=== PATIENT | male | born 1960 | race Two or more races ===

== ENCOUNTER 2023-03-04 09:15 | Inpatient (IN) | payer BC, OTHER ==
[~2023-03-04] VITALS: Ht 182.9 cm; Wt 109.0 kg
[2023-03-04] MEDS ORDERED: SODIUM CHLORIDE 0.9% 1,000 ML IV ONE ×2 (09:45)
[2023-03-04 09:54] LABS: Basophils # (auto) 0.1 10 ^3/uL (0-0.2); Eosinophils # (auto) 0.3 10 ^3/uL (0-0.8); Eosinophils % (auto) 3.7 % (0.0-7.0); Hematocrit 47.8 % (41.0-53.0); Hemoglobin 16.5 g/dL (13.5-17.5); Lymphocytes # (auto) 3.9 10 ^3/uL (0.4-5.4); Lymphocytes % (auto) 42.7 % (10.0-50.0); Mean Corpuscular Hemoglobin 29.6 pg (28.0-32.0); Mean Corpuscular Hgb Conc. 34.5 g/dL (32.0-36.0); Mean Corpuscular Volume 85.6 fL (80.0-100.0); Monocytes # (auto) 0.6 10 ^3/uL (0-1.3); Monocytes % (auto) 6.3 % (0.0-12.0); Neutrophils # (auto) 4.3 10 ^3/uL (1.6-8.6); Neutrophils % (auto) 46.3 % (37.0-80.0); Nucleated Red Blood Cells % 0.3 %; Red Blood Cells 5.58 10^6/uL (4.5-5.90); Red Cell Distribution Width 14.3 % (11.8-14.3); White Blood Cell 9.2 10^3/uL (4.4-10.8)
[2023-03-04 10:16] LABS: Albumin 4.6 g/dL (3.4-5.0); BUN/Creatinine Ratio 15.5 (10.0-20.0); Calcium 9.1 mg/dL (8.5-10.1); Potassium 3.7 mmol/L (3.5-5.1)
[2023-03-04 10:19] LABS: Bilirubin, Total 0.3 mg/dL (0.2-1.0); Total Protein 7.5 g/dL (6.4-8.2)
[2023-03-04 10:21] LABS: Urine Bacteria NONE SEEN /hpf (None Seen); Urine Blood Negative /uL (Negative); Urine Mucus FEW (None Seen); Urine Specific Gravity 1.021 (1.001-1.035); Urine WBC <1 /hpf (0 - 3)
[2023-03-04] MEDS ORDERED: MORPHINE SULFATE 4 MG/ML SYR/VIAL IV ONE (11:00)
[2023-03-04] MEDS ORDERED: ONDANSETRON HCL 4 MG/2 ML VIAL IV ONE (11:00)
[2023-03-04] MEDS: METOPROLOL SUCCINATE XL 50 MG TAB PO SCH (12:00)
[2023-03-04] MEDS ORDERED: HYDROcodone-ACET 5/325MG TAB PO PRN (12:00)
[2023-03-04] MEDS ORDERED: ACETAMINOPHEN 325 MG TAB PO PRN (12:00)
[2023-03-04] MEDS ORDERED: METOCLOPRAMIDE HCL 5MG/ml INJ 2ml VIAL IV PRN (12:00)
[2023-03-04] MEDS ORDERED: LOSARTAN POTASSIUM 50 MG TAB PO ONE (12:00)
[2023-03-04] MEDS ORDERED: LACTATED RINGER'S 1,000 ML IV ONE (12:00)
[2023-03-04] MEDS ORDERED: DOCUSATE SOD 100 MG CAP PO PRN (12:00)
[2023-03-04] MEDS: SODIUM CHLOR 0.9% PF (SALINE LOCK) 10ML VIAL/SYR IV SCH (14:16)
[2023-03-04] MEDS: HYDROmorphone HCL 2 MG/ML VL/or syr IV PRN ×2 (15:06→20:50)
[2023-03-04] MEDS: GABAPENTIN 300 MG CAP PO SCH (23:31)
[2023-03-04] MEDS: CYCLOBENZAPRINE HCL 10 MG TAB PO SCH (23:31)
[2023-03-05] VITALS (7 sets, daily range): BP systolic 118–145; BP diastolic 61–87
[2023-03-05] MEDS: SODIUM CHLOR 0.9% PF (SALINE LOCK) 10ML VIAL/SYR IV SCH ×3 (01:00→15:20)
[2023-03-05] MEDS: HYDROmorphone HCL 2 MG/ML VL/or syr IV PRN ×5 (01:34→23:41)
[2023-03-05] MEDS: EMPAGLIFLOZIN 10 MG TAB PO SCH (07:00)
[2023-03-05] MEDS: METOPROLOL SUCCINATE XL 50 MG TAB PO SCH (09:40)
[2023-03-05] MEDS: ENOXAPARIN SOD 40 MG/0.4 ML SYRINGE SC SCH (09:40)
[2023-03-05] MEDS: CYCLOBENZAPRINE HCL 10 MG TAB PO SCH ×2 (09:41→21:43)
[2023-03-05] MEDS: PANTOPRAZOLE 40 MG TAB PO SCH (09:41)
[2023-03-05] MEDS: amLODIPine BESYLATE 5 MG TAB PO SCH (09:41)
[2023-03-05] MEDS: GABAPENTIN 300 MG CAP PO SCH ×2 (09:41→21:42)
[2023-03-05] MEDS: ATORVASTATIN 20 MG TAB PO SCH (09:41)
[2023-03-05] MEDS: levoFLOXacin 500MG 100 ML IV SCH (17:19)
[2023-03-05] MEDS ORDERED: DICYCLOMINE HCL 10 MG CAP PO ONE (19:00)
[2023-03-05] MEDS: DOCUSATE SOD 100 MG CAP PO SCH (21:42)
[2023-03-05] MEDS: metroNIDAZOLE 500MG/100ML 100 ML IV SCH (21:42)
[2023-03-06] MEDS: SODIUM CHLOR 0.9% PF (SALINE LOCK) 10ML VIAL/SYR IV SCH ×4 (00:42→22:00)
[2023-03-06] MEDS: HYDROmorphone HCL 2 MG/ML VL/or syr IV PRN ×5 (04:41→22:01)
[2023-03-06 05:00] VITALS: BP 141/81
[2023-03-06] MEDS: metroNIDAZOLE 500MG/100ML 100 ML IV SCH ×3 (06:36→21:59)
[2023-03-06] MEDS: EMPAGLIFLOZIN 10 MG TAB PO SCH (06:41)
[2023-03-06 08:00] VITALS: BP 142/73
[2023-03-06] MEDS: PANTOPRAZOLE 40 MG TAB PO SCH (10:23)
[2023-03-06] MEDS: CYCLOBENZAPRINE HCL 10 MG TAB PO SCH ×2 (10:23→21:59)
[2023-03-06] MEDS: DOCUSATE SOD 100 MG CAP PO SCH ×2 (10:23→21:59)
[2023-03-06] MEDS: GABAPENTIN 300 MG CAP PO SCH ×2 (10:23→21:59)
[2023-03-06] MEDS: ATORVASTATIN 20 MG TAB PO SCH (10:23)
[2023-03-06] MEDS: amLODIPine BESYLATE 5 MG TAB PO SCH (10:25)
[2023-03-06] MEDS: ENOXAPARIN SOD 40 MG/0.4 ML SYRINGE SC SCH (10:26)
[2023-03-06] MEDS: METOPROLOL SUCCINATE XL 50 MG TAB PO SCH (10:26)
[2023-03-06] MEDS: levoFLOXacin 500MG 100 ML IV SCH (10:53)
[2023-03-06 12:00] VITALS: BP 126/80
[2023-03-06 16:00] VITALS: BP 109/72
[2023-03-06 17:16] VITALS: BP 109/72
[2023-03-06 22:00] VITALS: BP 135/92
[2023-03-07] MEDS: HYDROmorphone HCL 2 MG/ML VL/or syr IV PRN ×5 (02:10→20:40)
[2023-03-07 05:00] VITALS: BP 139/87
[2023-03-07] MEDS: metroNIDAZOLE 500MG/100ML 100 ML IV SCH ×3 (06:01→22:51)
[2023-03-07] MEDS: SODIUM CHLOR 0.9% PF (SALINE LOCK) 10ML VIAL/SYR IV SCH ×3 (06:01→22:52)
[2023-03-07] MEDS: EMPAGLIFLOZIN 10 MG TAB PO SCH (06:50)
[2023-03-07 08:00] VITALS: BP 123/78
[2023-03-07] MEDS: CYCLOBENZAPRINE HCL 10 MG TAB PO SCH ×2 (08:40→22:51)
[2023-03-07] MEDS: ATORVASTATIN 20 MG TAB PO SCH (08:40)
[2023-03-07] MEDS: GABAPENTIN 300 MG CAP PO SCH ×2 (08:40→22:51)
[2023-03-07] MEDS: DOCUSATE SOD 100 MG CAP PO SCH ×2 (08:40→22:52)
[2023-03-07] MEDS: amLODIPine BESYLATE 5 MG TAB PO SCH (08:40)
[2023-03-07] MEDS: PANTOPRAZOLE 40 MG TAB PO SCH (08:40)
[2023-03-07] MEDS: ENOXAPARIN SOD 40 MG/0.4 ML SYRINGE SC SCH (08:41)
[2023-03-07 09:00] VITALS: BP 123/78
[2023-03-07] MEDS: levoFLOXacin 500MG 100 ML IV SCH (09:34)
[2023-03-07] MEDS: METOPROLOL SUCCINATE XL 50 MG TAB PO SCH (09:36)
[2023-03-07 13:00] VITALS: BP 135/84
[2023-03-07] MEDS: LACTULOSE 20Gm/30ML SOLN PO PRN (15:01)
[2023-03-07 17:00] VITALS: BP 134/84
[2023-03-07 22:00] VITALS: BP 144/79
[2023-03-08] MEDS: HYDROmorphone HCL 2 MG/ML VL/or syr IV PRN ×4 (00:36→20:11)
[2023-03-08 05:00] VITALS: BP 111/66
[2023-03-08] MEDS: metroNIDAZOLE 500MG/100ML 100 ML IV SCH ×3 (05:22→22:54)
[2023-03-08] MEDS: SODIUM CHLOR 0.9% PF (SALINE LOCK) 10ML VIAL/SYR IV SCH ×3 (06:15→22:53)
[2023-03-08] MEDS: EMPAGLIFLOZIN 10 MG TAB PO SCH (06:36)
[2023-03-08] MEDS: levoFLOXacin 500MG 100 ML IV SCH (08:51)
[2023-03-08] MEDS: GABAPENTIN 300 MG CAP PO SCH ×2 (08:52→22:53)
[2023-03-08] MEDS: CYCLOBENZAPRINE HCL 10 MG TAB PO SCH ×2 (08:52→22:53)
[2023-03-08] MEDS: ATORVASTATIN 20 MG TAB PO SCH (08:52)
[2023-03-08] MEDS: DOCUSATE SOD 100 MG CAP PO SCH ×2 (08:52→22:53)
[2023-03-08] MEDS: PANTOPRAZOLE 40 MG TAB PO SCH (08:52)
[2023-03-08] MEDS: amLODIPine BESYLATE 5 MG TAB PO SCH (08:54)
[2023-03-08] MEDS: METOPROLOL SUCCINATE XL 50 MG TAB PO SCH (08:55)
[2023-03-08 09:00] VITALS: BP 127/77
[2023-03-08] MEDS: ENOXAPARIN SOD 40 MG/0.4 ML SYRINGE SC SCH (12:19)
[2023-03-08 13:00] VITALS: BP 122/72
[2023-03-08] MEDS: LACTULOSE 20Gm/30ML SOLN PO PRN (14:03)
[2023-03-08 17:00] VITALS: BP 108/57
[2023-03-08 22:00] VITALS: BP 137/81
[2023-03-09] MEDS: HYDROmorphone HCL 2 MG/ML VL/or syr IV PRN ×3 (02:18→21:52)
[2023-03-09 05:00] VITALS: BP 122/72
[2023-03-09] MEDS: metroNIDAZOLE 500MG/100ML 100 ML IV SCH ×3 (06:34→21:20)
[2023-03-09] MEDS: SODIUM CHLOR 0.9% PF (SALINE LOCK) 10ML VIAL/SYR IV SCH ×3 (06:34→21:20)
[2023-03-09] MEDS: EMPAGLIFLOZIN 10 MG TAB PO SCH (07:00)
[2023-03-09 09:00] VITALS: BP 111/70
[2023-03-09] MEDS: amLODIPine BESYLATE 5 MG TAB PO SCH (10:00)
[2023-03-09] MEDS: METOPROLOL SUCCINATE XL 50 MG TAB PO SCH (10:00)
[2023-03-09] MEDS: CYCLOBENZAPRINE HCL 10 MG TAB PO SCH ×2 (10:56→21:20)
[2023-03-09] MEDS: DOCUSATE SOD 100 MG CAP PO SCH ×2 (10:57→21:20)
[2023-03-09] MEDS: ATORVASTATIN 20 MG TAB PO SCH (10:57)
[2023-03-09] MEDS: levoFLOXacin 500MG 100 ML IV SCH (10:57)
[2023-03-09] MEDS ORDERED: GABA-1250 PO (10:59)
[2023-03-09] MEDS ORDERED: DOCU-265 PO (10:59)
[2023-03-09] MEDS ORDERED: LEVO500T91 PO (10:59)
[2023-03-09] MEDS ORDERED: CYCL-611 PO (10:59)
[2023-03-09] MEDS ORDERED: ATOR20TA50 PO (10:59)
[2023-03-09] MEDS ORDERED: EMPA1TAB PO (10:59)
[2023-03-09] MEDS ORDERED: METR-344 PO (10:59)
[2023-03-09] MEDS: PANTOPRAZOLE 40 MG TAB PO SCH (11:01)
[2023-03-09] MEDS: ENOXAPARIN SOD 40 MG/0.4 ML SYRINGE SC SCH (11:02)
[2023-03-09] MEDS: GABAPENTIN 300 MG CAP PO SCH ×2 (11:11→21:20)
[2023-03-09 13:00] VITALS: BP 111/73
[2023-03-09 17:00] VITALS: BP 101/62
[2023-03-09 22:00] VITALS: BP 121/80
[2023-03-10 05:00] VITALS: BP 126/81
[2023-03-10] MEDS: metroNIDAZOLE 500MG/100ML 100 ML IV SCH ×2 (05:48→14:24)
[2023-03-10] MEDS: SODIUM CHLOR 0.9% PF (SALINE LOCK) 10ML VIAL/SYR IV SCH ×2 (05:48→14:24)
[2023-03-10] MEDS: HYDROmorphone HCL 2 MG/ML VL/or syr IV PRN (05:49)
[2023-03-10] MEDS: EMPAGLIFLOZIN 10 MG TAB PO SCH (06:41)
[2023-03-10 08:00] VITALS: BP 134/74
[2023-03-10] MEDS: GABAPENTIN 300 MG CAP PO SCH (10:27)
[2023-03-10] MEDS: DOCUSATE SOD 100 MG CAP PO SCH (10:27)
[2023-03-10] MEDS: ATORVASTATIN 20 MG TAB PO SCH (10:27)
[2023-03-10] MEDS: CYCLOBENZAPRINE HCL 10 MG TAB PO SCH (10:27)
[2023-03-10] MEDS: amLODIPine BESYLATE 5 MG TAB PO SCH (10:28)
[2023-03-10] MEDS: PANTOPRAZOLE 40 MG TAB PO SCH (10:28)
[2023-03-10] MEDS: levoFLOXacin 500MG 100 ML IV SCH (10:29)
[2023-03-10] MEDS: METOPROLOL SUCCINATE XL 50 MG TAB PO SCH (10:29)
[2023-03-10] MEDS: ENOXAPARIN SOD 40 MG/0.4 ML SYRINGE SC SCH (10:29)
[2023-03-10] MEDS ORDERED: KETOROLAC TROMETH 30 MG/ML 1ML VIAL IV PRN (10:45)
[2023-03-10] MEDS ORDERED: GASTROGRAFIN 120 ML SOL ONE (10:45)
[2023-03-10 12:00] VITALS: BP 143/93
[2023-03-10] MEDS: LACTULOSE 20Gm/30ML SOLN PO PRN (14:34)
[2023-03-10 16:00] VITALS: BP 131/78
[2023-03-10 17:38] VITALS: BP 140/77
== END 2023-03-10 20:01 | disposition home or self-care (01) | DRG 392 ==
LOC: EDBD 09:15 → ER 09:15 → OVERFLOW 12:05 → CENTRAL 22:00
PROVIDERS: ADMIT Internal Medicine; ATTEND Internal Medicine
DX: K57.30 Diverticulosis of large intestine without perforation or abscess without bleeding (principal); K59.00 Constipation, unspecified; I10 Essential (primary) hypertension; E11.9 Type 2 diabetes mellitus without complications; G89.29 Other chronic pain; Z86.010 Personal history of colon polyps
CPT/HCPCS: 36415; 71045; 74176; 74250; 80053; 81001; 83880; 84484; 85025; 93005; G0378; J1885; J1956; J2405; J3490

== ENCOUNTER 2025-07-17 01:11 | Emergency (ER) | payer BC, OTHER ==
[~2025-07-17] VITALS: Ht 185.4 cm; Wt 95.3 kg
[~2025-07-17 01:11] MED LIST: ATOR20TA50 PO; CYCL-611 PO; DOCU-265 PO; EMPA1TAB PO; GABA-1250 PO; LEVO500T91 PO; METR-344 PO
[2025-07-17] MEDS: HYDROcodone-ACET 10/325MG TAB PO ONE (01:45)
--- NOTE | 2025-07-17 01:48 | DVH ---
CHEST RADIOGRAPH Indication: chest pain Technique: Single frontal view of the chest was obtained COMPARISON: XY CHEST PORTABLE on DOS: 03/04/23 FINDINGS: Lines and Tubes: Thoracic epidural leads noted. Lungs: Clear Pleura: No pleural effusion or pneumothorax. Cardiomediastinal contours: Normal IMPRESSION: No abnormality demonstrated.
--- NOTE | 2025-07-17 01:52 | ED.PDOC ---
History of Present Illness HPI Comments 64-year-old male presents with chief complaint of nonradiating, substernal chest pain. Patient reports on having intermittent pain for the past 3 weeks following initial, unprovoked and atraumatic onset. No endorsed recent ailments, stressors, strenuous activities, travel, or substance use. He comments on history of similar chest pain episode in the past, with a company ED hospital facility visit, and being told on having a 50% heart blockage with no medical intervention performed then. Patient denies having any shortness of breath, nausea, vomiting, or further acute symptoms. Significant medical history of diabetes, hypercholesterolemia, and hypertension. Upon arrival to ED triage, patient was found hypertensive at 187/110. Chief Complaint: Chest Pain Time Seen by MD: 01:40 Primary Care Provider: LOKESH Nair Notes: Nurses Notes, Medications, Allergies Allergies: Coded Allergies: NO KNOWN ALLERGIES (Unverified , 03/04/23) Home Meds Active Scripts Metronidazole (Flagyl) 500 Mg Tab, 500 MG PO TID, #21 TAB Prov:TREMAYNE OLSEN MD 03/09/23 Levofloxacin Hemihydrate (LEVAQUIN 500 MG) 500 Mg Tab, 1 TAB PO DAILY, #7 TAB Prov:TREMAYNE OLSEN MD 03/09/23 Gabapentin (Gabapentin) 300 Mg Cap, 300 MG PO BID, #60 CAP Prov:TREMAYNE LOSEN MD 03/09/23 Empagliflozin (Jardiance) 10 Mg Tab, 25 MG PO QAM, #45 TAB Prov:TREMAYNE OLSEN MD 03/09/23 Docusate Sodium (Docusate Sodium) 100 Mg Cap, 100 MG PO BID, #60 CAP Prov:TREMAYNE OLSEN MD 03/09/23 Cyclobenzaprine HCl (Cyclobenzaprine Hydrochlo) 10 Mg Tab, 10 MG PO BID, #60 TAB Prov:TREMAYNE OLSEN MD 03/09/23 Atorvastatin Calcium (ATORVASTATIN CALCIUM) 20 Mg Tab, 20 MG PO DAILY, #30 TAB Prov:TREMAYNE OLSEN MD 03/09/23 Information Source: Patient Mode of Arrival: Ambulatory Severity: Moderate Timing: Weeks Duration: Intermittent Prehospital treatment: None Past Medical History PAST MEDICAL HISTORY: DM, High Lipids, HTN Surgical History: Denies all surgeries Family History Family History: Reviewed,noncontributory to illness Social History Smoker: Non-Smoker Alcohol: Denies ETOH Use Drugs: Marijuana Lives In: Home All Other Systems: Reviewed and Negative (Comprehensive review of systems are negative unless otherwise stated in HPI) Physical Exam General Appearance: Mild Distress, Normal HEENT: Normal ENT Inspection, Pharynx Normal, TMs Normal Neck: Full Range of Motion, Non-Tender, Normal, Normal Inspection Respiratory: Chest Non-Tender, Lungs Clear, No Accessory Muscle Use, No Respiratory Distress, Normal Breath Sounds Cardiovascular: No Edema, No JVD, No Murmur, No Gallop, Normal Peripheral Pulses, Regular Rate/Rhythm Breast Exam: Deferred Gastrointestinal: No Organomegaly, Non Tender, No Pulsatile Mass, Normal Bowel Sounds, Soft Genitalia: Deferred Pelvic: Deferred Rectal: Deferred Extremities: No calf tenderness, Normal capillary refill, Normal inspection, Normal range of motion, Non-tender, No pedal edema Musculoskeletal : Apperance: Normal Neurologic: Alert, assembler filters II-XII nml as Tested, No Motor Deficits, Normal Affect, Normal Mood, No Sensory Deficits Cerebellar Function: Normal Reflexes: Normal Skin: Dry, Normal Color, Warm Lymphatic: No Adenopathy Was a procedure done? Was a procedure done?: No EKG EKG : Pulse Rate (adult): 76 [place]: Normal Cardiac Rhythm: NSR Block: None Hypertrophy: None ST: Normal Differential Dx Considerations may include: SD, PE, ACS, URI, pneumonia, angina, anxiety, gastritis, among others X-Ray, Labs, Meds, VS Vital Signs Date Time Temp Pulse Resp B/P (MAP) Pulse Ox O2 Delivery O2 Flow Rate FiO2 07/17/25 01:52 76 07/17/25 01:31 76 07/17/25 01:15 97.6 83 20 187/110 98 97.6 Lab Test 07/17/25 02:51 07/17/25 01:45 07/17/25 01:26 Range/Units Troponin I High Sensitivity 5 4 </=54 ng/L White Blood Count 9.4 4.4-10.8 10^3/uL Red Blood Count 5.33 4.5-5.90 10^6/uL Hemoglobin 15.5 13.5-17.5 g/dL Hematocrit 45.9 41.0-53.0 % Mean Corpuscular Volume 86.1 80.0-100.0 fL Mean Corpuscular Hemoglobin 29.0 28.0-32.0 pg Mean Corpuscular Hemoglobin Concent 33.7 32.0-36.0 g/dL Red Cell Distribution Width 14.4 H 11.8-14.3 % Platelet Count 220 140-450 10^3/uL Mean Platelet Volume 8.6 6.9-10.8 fL Neutrophils (%) (Auto) 44.7 37.0-80.0 % Lymphocytes (%) (Auto) 42.6 10.0-50.0 % Monocytes (%) (Auto) 8.3 0.0-12.0 % Eosinophils (%) (Auto) 3.5 0.0-7.0 % Basophils (%) (Auto) 0.9 0.0-2.0 % Neutrophils # (Auto) 4.2 1.6-8.6 10 ^3/uL Lymphocytes # (Auto) 4.0 0.4-5.4 10 ^3/uL Monocytes # (Auto) 0.8 0-1.3 10 ^3/uL Eosinophils # (Auto) 0.3 0-0.8 10 ^3/uL Basophils # (Auto) 0.1 0-0.2 10 ^3/uL Nucleated Red Blood Cells 0.2 % Sodium Level 142 136-145 mmol/L Potassium Level 3.1 L 3.5-5.1 mmol/L Chloride Level 103 98-107 mmol/L Carbon Dioxide Level 30 20-31 mmol/L Anion Gap 9 5-15 Blood Urea Nitrogen 18 9-23 mg/dL Creatinine 1.18 0.700-1.30 mg/dL Glomerular Filtration Rate Calc 70 >90 mL/min BUN/Creatinine Ratio 15.3 10.0-20.0 Serum Glucose 97 74-106 mg/dL Calcium Level 10.1 8.7-10.4 mg/dL Total Bilirubin 0.5 0.2-1.0 mg/dL Aspartate Amino Transferase (AST) 25 13-40 U/L Alanine Aminotransferase (ALT) 18 7-40 U/L Alkaline Phosphatase 52 46-116 U/L B-Type Natriuretic Peptide Pending Total Protein 7.9 5.7-8.2 g/dL Albumin 4.8 3.2-4.8 g/dL POC Glucose 107 H 70-106 mg/dl Current Medications Medications (Trade) Dose Ordered Sig/Colt Route Start Time Stop Time Status Last Admin Ketorolac Tromethamine (Toradol Injection) 15 mg ONCE ONCE IM 07/17/25 03:30 07/17/25 03:31 DC 07/17/25 03:[address] [address] Ph: [phone] DIAGNOSTIC IMAGING Diagnostic Imaging Report : [id number] Signed PATIENT: CELINA PETE ACCT: [id number] UNIT: [id number] : 1960 LOC: ER ROOM / BED: / AGE / SEX: 64 / M ADM STATUS: REG ER SERVICE 0 ORDERING PHYSICIAN: GILBERTO KERR MD PROCEDURE(s): CXR1 - CHEST XRAY 1 VIEW REASON: chest pain ORDER NUMBER(s): [id number], ACCESSION NUMBER(s): [id number] CHEST RADIOGRAPH Indication: chest pain Technique: Single frontal view of the chest was obtained COMPARISON: XY CHEST PORTABLE on DOS: 03/04/23 FINDINGS: Lines and Tubes: Thoracic epidural leads noted. Lungs: Clear Pleura: No pleural effusion or pneumothorax. Cardiomediastinal contours: Normal IMPRESSION: No abnormality demonstrated. ATED BY: AZ MAHAJAN MD DICTATED DATE/TIME: 07/17/25145 SIGNED BY: AZ MAHAJAN MD SIGNED DATE/TIME: 07/17/25145 CC: Time of 1ST Reevaluation: 02:10 Reevaluation 1ST: Unchanged Patient Education/Counseling: Diagnosis, Treatment, Need For Follow Up Family Education/Counseling: No Family Present SEPSIS Sepsis Screen Date sepsis recognized/suspect: Jul 17, 2025 Time Sepsis recognized/suspect: 0117 Recent Procedure: No On Antibiotic Therapy: No Respiratory Rate >20: No Heart Rate >90: No Temp<36 C (96.8 F) or >38.3 C: No SBP <90 or MAP <65 mmHG: No New Acute Mental Status Change: No Is the patient on CPAP, BIPAP,: No Physician Orders B-Type Natriuretic Peptide (07/17/25 01:31) Electrocardigram (07/17/25 01:31) Troponin-I Hs (07/17/25 04:31) Chest Xray 1 View (07/17/25 01:31) Vital Signs Date Time Temp Pulse Resp B/P (MAP) Pulse Ox O2 Delivery O2 Flow Rate FiO2 07/17/25 01:52 76 07/17/25 01:31 76 07/17/25 01:15 97.6 83 20 187/110 98 97.6 Laboratory Tests Test 07/17/25 01:45 White Blood Count 9.4 10^3/uL (4.4-10.8) Medications Medications Dose Ordered Sig/Colt Route Start Time Stop Time Status Last Admin Dose Admin Ketorolac Tromethamine 15 mg ONCE ONCE IM 07/17/25 03:30 07/17/25 03:31 DC 07/17/25 03:44 Departure 1 Departure Time of Disposition: 03:54 Impression: Primary Impression: Acute coronary syndrome Disposition: ADMITTED INPATIENT Admit to: Tele Condition: Guarded Comments 64-year-old male with a history of hypertension and diabetes and hypercholesterolemia now with suspicious chest pain. On re-evaluation the patient still has some chest pain. Initial troponin is normal. Patient was given aspirin. Patient will need admission for further cardiac workup Critical Care Note Critical Care Time?: Yes (35 min-critical care time only) Critical care comment: Total critical care time: Approximately 36 minutes Due to a high probability of clinically significant, life threatening deterioration, the patient required my highest level of preparedness to intervene emergently and I personally spent this critical care time directly and personally managing the patient. This critical care time included obtaining a history; examining the patient; pulse oximetry; ordering and review of studies; arranging urgent treatment with development of a management plan; evaluation of patient's response to treatment; frequent reassessment; and, discussions with other providers. This critical care time was performed to assess and manage the high probability of imminent, life-threatening deterioration that could result in multi-organ failure. It was exclusive of separately billable procedures and treating other patients. Stability Stability form required: No Heart Score Heart Score: Heart Score Response (Comments) Value History Moderate Suspicious 1 EKG Normal 0 Age 45-64 1 Risk Factors >3 or Hx ASHD 2 Troponin Normal limit 0 Total 4 I personally scribed for GILBERTO KERR MD ([email or web address]) on 07/17/25 at 01:52. Electronically submitted by Elvis Fitzpatrick ([email or web address]). I personally scribed for GILBERTO KERR MD ([email or web address]) on 07/17/25 at 01:58. Electronically submitted by Elvis Fitzpatrick ([email or web address]). GILBERTO KERR MD Jul 17, 2025 01:52
[2025-07-17 02:10] LABS: Hematocrit 45.9 % (41.0-53.0); Hemoglobin 15.5 g/dL (13.5-17.5); Mean Corpuscular Hemoglobin 29.0 pg (28.0-32.0); Mean Corpuscular Volume 86.1 fL (80.0-100.0); Nucleated Red Blood Cells % 0.2 %
[2025-07-17 03:11] LABS: Alanine Aminotransferase 18 U/L (7-40); Alkaline Phosphatase 52 U/L (46-116); Anion Gap 9 (5-15); BUN/Creatinine Ratio 15.3 (10.0-20.0); Bilirubin, Total 0.5 mg/dL (0.2-1.0); Blood Urea Nitrogen 18 mg/dL (9-23); Calcium 10.1 mg/dL (8.7-10.4); Carbon Dioxide 30 mmol/L (20-31); Chloride 103 mmol/L (98-107); Glucose 97 mg/dL (74-106); Sodium 142 mmol/L (136-145); Total Protein 7.9 g/dL (5.7-8.2)
[2025-07-17 03:12] LABS: Albumin 4.8 g/dL (3.2-4.8); Potassium 3.1 mmol/L (3.5-5.1)
[2025-07-17] MEDS: KETOROLAC TROMETH 30 MG/ML 1ML VIAL IM ONE (03:44)
[2025-07-17] MEDS: ONDANSETRON HCL 4 MG/2 ML VIAL IV ONE (04:30)
[2025-07-17] MEDS: MORPHINE SULFATE 4 MG/ML SYR/VIAL IV ONE (04:30)
--- NOTE | 2025-07-17 07:03 | DVH ---
Procedure: CT CHEST WITHOUT CONTRAST Reason for study/Clinical History: Shortness of breath. Comparison Study: XY CHEST XRAY 1 VIEW on DOS: 07/17/25. Exam Date: 07/17/2025 05:57 AM TECHNIQUE: Multidetector CT of the chest was performed from the lung apices to the upper abdomen with out the use of intravenous contract. Coronal and sagittal multiplanar reformats were performed. Radiation Dose Information: CT Dose: CTDI volume is 15.0 mGy. Dose-length product is 613.55 mGy*cm The dose indicators for CT are the volume Computed Tomography (CT) Dose Index (CTDIvol) and the Dose Length Product (DLP), and are measured in units of mGy and mGy-cm, respectively. These indicators are not patient dose, but values generated from the CT scanner acquisition factors. The report includes radiation exposure data for exposures received during this examination. FINDINGS: Lower neck: Normal thyroid. Lungs: No focal consolidation, pleural effusion or pneumothorax. Central airways: Patent. Heart/Vascular Structures: Normal heart size. No pericardial effusion. Normal caliber thoracic aorta and main pulmonary artery. Lymph Nodes: No adenopathy Pleura: No pleural effusion or significant pneumothorax. Musculoskeletal: No acute osseous abnormality. There is a neurostimulator in the midthoracic spine. Soft tissues: Normal. Upper abdomen: Limited portions of the upper abdomen are unremarkable. IMPRESSION: 1. No acute intrathoracic abnormality. Radiation optimization: All CT scans at this facility use at least one of these dose optimization chuyita hniques: automated exposure control mA and/or kV adjustment per patient size (includes targeted exam s where dose is matched to clinical indication) or iterative reconstruction.
[2025-07-17 07:40] VITALS: BP 157/88; TEMP 97.8
[2025-07-17 07:45] VITALS: PULSE 55; RESP 16; O2SAT 98
--- NOTE | 2025-07-17 14:36 | ECG ---
[facility] Test Date: 2025-07-17 Test Time: 01:18:49 Pat Name: CELINA PETE Department: Room: Gender: M [employer]: : 1960 Requested By: GILBERTO KERR Order Number: [id number] Reading MD: Kalin Sorenson Measurements Intervals [place] Rate: 76 P: 80 OK: 194 QRS: 80 QRSD: 95 T: 22 QT: 394 QTc: 444 Interpretive Statements Sinus rhythm Probable anteroseptal infarct, old Minimal ST depression, inferior leads Baseline wander in lead(s) III Electronically Signed On 07-18-2025 13:38:10 PST by Kalin Sorenson Please click the below link to view image of tracing.
== END 2025-07-17 07:58 | disposition home or self-care (01) ==
LOC: ER 01:11
DX: I24.9 Acute ischemic heart disease, unspecified (principal); I10 Essential (primary) hypertension; E11.9 Type 2 diabetes mellitus without complications; E78.5 Hyperlipidemia, unspecified; Z79.84 Long term (current) use of oral hypoglycemic drugs; Z79.899 Other long term (current) drug therapy
CPT/HCPCS: 36415; 71045; 71250; 80053; 82947; 83880; 84484; 85025; 93005; 96372; 96374; 96375; 99285; J1885; J2270; J2405; 82962